=== PATIENT | female | born 1995 | race Caucasian/White ===

== ENCOUNTER 2018-03-06 09:14 | Inpatient (IN) ==
[2018-03-06] MEDS ORDERED: ONDANSETRON HCL/PF 2 MG/ML VIAL IV PRN ×2 (09:22→22:59)
[2018-03-06] MEDS ORDERED: OXYTOCIN/DEXTROSE 5%-WATER 30 UNITS/500 ML BAG IV ONE ×2 (09:22→23:59)
[2018-03-06] MEDS ORDERED: DEXTROSE 5%-LACTATED RINGERS 1,000 ML IV PRN (09:22)
[2018-03-06 09:47] LABS: Hematocrit 27.4 % (37.0-47.0); Hemoglobin 8.4 gm/dL (12.5-16.0); Mean Cell Volume 72.9 fl (78-100); Mean Corpuscular Hemoglobin 22.3 pg (27-31); Mean Corpuscular Hgb Conc 30.7 g/dl (32-36); Mean Platelet Volume 8.8 fl (8-12.5); Neutrophil # 6.3 K/mm3 (1.3-6.0); Platelet Count 248 K/mm3 (150-450); Red Blood Count 3.76 M/mm3 (4.2-5.4); Red Cell Distribution Width 15.9 % (11.5-14.0); White Blood Count 8.2 K/mm3 (4.0-10.5)
[2018-03-06 10:47] LABS: Cocaine Ur Negative (NEGATIVE); Urine Barbiturate Negative (NEGATIVE); Urine Benzodiazepines Negative (NEGATIVE); Urine Opiates Negative (NEGATIVE); Urine PCP Negative (NEGATIVE); Urine THC Negative (NEGATIVE)
--- NOTE | 2018-03-06 19:00 | HP ---
Chief Complaint - Chief Complaint Date of Service: 03/06/18 Time of Service: 18:50 Chief Complaint: LOF, contractions History of Present Illness: 22 yo at 37wk 5d presents to L&D complaining of SROM at around 0700 with frequent painful contractions. This complicated by chlamydia infection (tx'd), poor growth (26.9 - 17.4%), pelviectasis. Rh negative Rubella immune GBS negative Medical History (Last Reviewed 03/06/18 @ 18:56 by Fracisco Guzman DO) Anemia Onset Date: ~2013 d/t Implanon-irregular bleeding Chlamydia Onset Date: ~2011 2011; 08/25/17 Surgical History: Surgical History (Last Reviewed 03/06/18 @ 18:56 by Fracisco Guzman DO) H/O adenoidectomy Onset Date: ~2002 History of tonsillectomy Onset Date: ~2002 Family History: Family History (Last Reviewed 03/06/18 @ 18:56 by Fracisco Guzman DO) Father Alive and well Mother Cancer ovarian-hysterectomy Sister SIDS (sudden infant syndrome) Grandfather Heart disease Cancer maternal-colon Grandfather Diabetes paternal Grandmother Heart disease Cancer maternal-lung Grandmother Cancer paternal-breast Social History: Preferred Language Romanian (Last Updated 03/02/18 @ 12:24 by Fracisco Guzman DO) No Social History Section defined Review Of Systems (GEN) - Review of Systems EENTM: Present: No Symptoms Reported Respiratory: Present: No Symptoms Reported Cardiac: Present: No Symptoms Reported Abdominal: Present: Other - contractions Genitourinary: Present: Other - LOF Musculoskeletal: Present: No Symptoms Reported Neurological: Present: No Symptoms Reported Skin: Present: No Symptoms Reported Endocrine: Present: No Symptoms Reported Allergies/Adverse Reactions: Allergies Allergy/AdvReac Type Severity Reaction Status Date / Time azithromycin Allergy Mild rash Verified 02/16/18 14:06 cefaclor [From Ceclor] Allergy Mild hives Verified 02/16/18 14:06 cephalexin Allergy Mild hives Verified 02/16/18 14:06 Home Medications: HOME MEDICATIONS vitamin,calcium,enmgokql-sqre-plqdo acid tablet 1 tab PO DAILY 11/09/17 [Last Taken Unknown] Calcium Carbonate [Tums] 500 mg PO DAILY 10/27/18 [Last Taken Unknown] Exam - Exam Vital Signs: Vital Signs - Last Taken Temp 36.9 C 03/06/18 09:15 Pulse 92 03/06/18 09:15 Resp 18 03/06/18 09:15 BP 118/69 03/06/18 09:15 Pulse Ox 100 03/06/18 09:15 Constitutional: Present: Alert, Oriented x3, Cooperative ENT Exam: Present: hearing grossly normal Neck: Present: trachea midline. Absent: lymphadenopathy (R), lymphadenopathy (L), thyromegaly Back Exam: Present: no CVA tenderness Breasts: Present: Exam deferred Respiratory: Present: lungs clear, no respiratory distress Cardiovascular/Chest: Present: normal peripheral pulses, regular rate, rhythm, no edema Abdomen: Present: soft, nontender, no rebound tenderness, other - gravid /Rectal: Present: Other - 3-4/75/-2, per nurse upon admission with gross ROM - clear Extremity: Present: no pedal edema, no calf tenderness Skin Exam: Present: normal color, warm/dry, no cyanosis Lymphatic: Present: no adenopathy Neurologic: Present: alert, normal mood/affect, oriented x 3 Appearance: Present: appropriate appearance, appropriate insight Eye contact: Present: cooperative, good eye contact Thoughts: Present: normal thought pattern Diagnostic Studies: Abnormal Lab Results 03/06/18 Range/Units 09:35 RBC 3.76 L (4.2-5.4) M/mm3 Hgb 8.4 L (12.5-16.0) gm/dL Hct 27.4 L (37.0-47.0) % MCV 72.9 L (78-100) fl MCH 22.3 L (27-31) pg MCHC 30.7 L (32-36) g/dl RDW 15.9 H (11.5-14.0) % Neutrophils % 77.0 H (42-75.0) % Lymphocytes % 15.0 L (20-51) % Neutrophils # 6.3 H (1.3-6.0) K/mm3 Lymphocytes # 1.24 L (1.5-3.5) k/mm3 Laboratory Results WBC 8.2 K/mm3 (4.0-10.5) 03/06/18 09:35 RBC 3.76 M/mm3 (4.2-5.4) L 03/06/18 09:35 Hgb 8.4 gm/dL (12.5-16.0) L 03/06/18 09:35 Hct 27.4 % (37.0-47.0) L 03/06/18 09:35 MCV 72.9 fl (78-100) L 03/06/18 09:35 MCH 22.3 pg (27-31) L 03/06/18 09:35 MCHC 30.7 g/dl (32-36) L 03/06/18 09:35 RDW 15.9 % (11.5-14.0) H 03/06/18 09:35 Plt Count 248 K/mm3 (150-450) 03/06/18 09:35 MPV 8.8 fl (8-12.5) 03/06/18 09:35 Immature Gran % (Auto) 0.20 % (0.001-0.429) 03/06/18 09:35 Immature Gran # (Auto) 0.02 K/mm3 (0.000-0.0310) 03/06/18 09:35 Neutrophils % 77.0 % (42-75.0) H 03/06/18 09:35 Lymphocytes % 15.0 % (20-51) L 03/06/18 09:35 Monocytes % 7.3 % (0.0-9) 03/06/18 09:35 Eosinophils % 0.4 % (0.0-3.0) 03/06/18 09:35 Basophils % 0.1 % (0.0-1.0) 03/06/18 09:35 Nucleated RBC % 0.0 k/mm3 (0-1) 03/06/18 09:35 Neutrophils # 6.3 K/mm3 (1.3-6.0) H 03/06/18 09:35 Lymphocytes # 1.24 k/mm3 (1.5-3.5) L 03/06/18 09:35 Monocytes # 0.6 k/mm3 (0.0-1.0) 03/06/18 09:35 Eosinophils # 0.0 k/mm3 (0.0-0.7) 03/06/18 09:35 Absolute Basophils 0.0 k/mm3 (0.0-0.1) 03/06/18 09:35 Urine Opiates Screen Negative (NEGATIVE) 03/06/18 10:08 Barbiturate Screen Negative (NEGATIVE) 03/06/18 10:08 Ur Phencyclidine Scrn Negative (NEGATIVE) 03/06/18 10:08 Urine Amphetamine Negative (NEGATIVE) 03/06/18 10:08 U Benzodiazepines Scrn Negative (NEGATIVE) 03/06/18 10:08 Urine Cocaine Screen Negative (NEGATIVE) 03/06/18 10:08 Urine Marijuana (THC) Negative (NEGATIVE) 03/06/18 10:08 Assessment/Plan - Assessment/Plan (1) SROM (spontaneous rupture of membranes) Assessment: Admit for routine managment of labor. Epidural PRN. Limit vaginal exams. Pitocin augmentation PRN. Observe closely for s/s of infection. Problem: Acute (2) Labor established Problem: Acute
--- NOTE | 2018-03-06 19:02 | PN ---
Progess Note - Interim Date: 03/06/18 Time: 12:30 Narrative: 03/06/18 19:00 Patient rates contractions 7/10 FHT 145 reassuring Contractions q 3-min. Pitocin at 9 mu/min. Cvx 4-5/80/-2, posterior, soft Impression: 37 5/7wk IUP, SROM, labor Plan: Continue present plan.
--- NOTE | 2018-03-06 19:57 | PN ---
Progess Note - Interim Date: 03/06/18 Time: 19:55 Narrative: 03/06/18 19:55 Patient rating her contractions 8 out of 10 Vital signs stable. Pitocin at 6 mu/min. FHT: 140 baseline, reassuring Contractions q 2-3 min Cervix: 6/90/-2 Impression: Intrauterine at 37-5/7 weeks in labor with ruptured membranes now at 13 hours Plan: IUPC placed. Anticipate normal spontaneous vaginal delivery.
[2018-03-06] MEDS: RINGER'S SOLUTION,LACTATED 1,000 ML IV ONE ×2 (20:07→22:51)
[2018-03-06] MEDS ORDERED: NALOXONE HCL 1 MG/1 ML SYRG IV PRN (22:59)
[2018-03-06] MEDS ORDERED: BUPIVACAINE HCL/0.9 % NACL/PF 250 ML EP PRN (22:59)
[2018-03-06] MEDS ORDERED: BUPIVACAINE HCL/PF 30 ML VIAL EP SCH (23:00)
--- NOTE | 2018-03-06 23:12 | ANES ---
Anesthesia Pre Procedure Eval Vitals/Labs: Last Vital Signs Temp 36.9 C 03/06/18 09:15 Pulse 92 03/06/18 09:15 Resp 18 03/06/18 09:15 BP 118/69 03/06/18 09:15 Pulse Ox 100 03/06/18 09:15 HOME MEDICATIONS vitamin,calcium,qwqiwodq-fhmo-zfhoz acid tablet 1 tab PO DAILY 11/09/17 [Last Taken Unknown] Calcium Carbonate [Tums] 500 mg PO DAILY 03/04/18 [Last Taken Unknown] Allergies/Adverse Reactions: Allergies Allergy/AdvReac Type Severity Reaction Status Date / Time azithromycin Allergy Mild rash Verified 02/16/18 14:06 cefaclor [From Ceclor] Allergy Mild hives Verified 02/16/18 14:06 cephalexin Allergy Mild hives Verified 02/16/18 14:06 - Planned Procedure Planned Procedure: ACTIVE LABOR Medication List Reviewed:: Yes Allergies Verified: Yes Medical History (Last Reviewed 03/06/18 @ 23:11 by Vipin Ac CRNA) Anemia Onset Date: ~2013 d/t Implanon-irregular bleeding Chlamydia Onset Date: ~2011 2011; 08/25/17 Surgical History (Last Reviewed 03/06/18 @ 23:11 by Vipin Ac CRNA) H/O adenoidectomy Onset Date: ~2002 History of tonsillectomy Onset Date: ~2002 Family History (Last Reviewed 03/06/18 @ 23:11 by Vipin Ac CRNA) Father Alive and well Mother Cancer ovarian-hysterectomy Sister SIDS (sudden syndrome) Grandfather Heart disease Cancer maternal-colon Grandfather Diabetes paternal Grandmother Heart disease Cancer maternal-lung Grandmother Cancer paternal-breast - Respiratory Smoking Status: Never smoker - Cardiovascular Tolerates Activity: Good Heart Sounds: S1 & S2, Regular - Anesthesia Assessment and Plan ASA Class: PS, II Anesthesia Type Plan: Epidural
--- NOTE | 2018-03-06 23:30 | ANES ---
Anesthesia Procedure Note Procedure Note: ANESTHESIA PROCEDURE NOTE Date of Procedure: 03/06/2018. Time of procedure: 5. Performed by: Vipin Ac CRNA Tool Repair Technician: None. Preprocedure diagnosis: Active labor. Post procedure diagnosis: Same. Procedure: Insertion of labor epidural. Indications: The patient is a 22 -year-old female in active labor requesting labor epidural for pain management. Findings: See below. Details of the procedure: The patient was placed in a sitting position. DuraPrep as well as Betadine swabs X3 was applied to the patient's back. Patient was then draped in a sterile fashion. Lidocaine 1% was infiltrated to the skin and subcutaneous tissues at the level of the L3-4 interspace. The epidural space was identified using a 18-gauge Tuohy needle with [id number] technique. Epidural catheter was inserted to a depth of 10 centimeters at skin. Negative test dose was elicited using 3 mL of 1.5% preservative-free lidocaine plus epinephrine 1 200,000. The epidural catheter was then taped and secured in place. A loading dose of 8 mL of 0.25% preservative-free bupivacaine was administered to the epidural catheter after negative aspiration for blood and CSF. EBL: Minimal. Fluids: N/A. Specimen: N/A. Post procedure condition: The patient tolerated the procedure well. No complications were noted. Thank you for this consultation. Vipin Ac CRNA
--- NOTE | 2018-03-06 23:31 | ANES ---
Post Anesthesia Assessment - Vital Signs Vitals: Last Vital Signs Temp 37.1 C 03/06/18 23:26 Pulse 102 H 03/06/18 23:26 Resp 18 03/06/18 23:26 BP 123/59 03/06/18 23:26 Pulse Ox 98 03/06/18 23:26 Airway Patency: Normal - Mental Status Level Of Consciousness: Awake - N/V Assessment Nausea/Vomiting Presence: None Dehydration:: No
[2018-03-06] MEDS ORDERED: SENNOSIDES 8.6 MG TABLET PO PRN (23:59)
[2018-03-06] MEDS ORDERED: BISACODYL 10 MG SUPP.RECT RC PRN (23:59)
[2018-03-06] MEDS ORDERED: oxyCODONE HCL/ACETAMINOPHEN 1 TAB TABLET PO PRN (23:59)
[2018-03-06] MEDS ORDERED: BENZOCAINE/MENTHOL 81 SPRAY CAN TP PRN (23:59)
[2018-03-06] MEDS ORDERED: GLYCERIN/WITCH HAZEL LEAF 40 APPL BOX TP PRN (23:59)
[2018-03-06] MEDS ORDERED: HYDROCORTISONE 30 APPL TUBE TP PRN (23:59)
--- NOTE | 2018-03-07 00:02 | OR ---
Operative Report - Dictated Report Narrative: Spontaneous vaginal delivery of viable female at 2339 with Apgars 8 and 9, weighing 3035 g in VANDANA position. Cord clamping delayed approximately 1 minute Placenta delivered complete, intact, with three vessel cord Estimated blood loss: less than 50 ml Anesthesia: epidural Lacerations: None History for MU Definition: * The number of deliveries resulting in a live the patient experienced prior to current hospitalization * The previous delivery of live twins or any live multiple gestation is considered one live event. *If primagravida or nulliparous is documented select zero for the number of previous live births. Live Events: 1
[2018-03-07] MEDS: DOCUSATE SODIUM 100 MG CAPSULE PO SCH ×3 (00:45→21:21)
[2018-03-07] MEDS: IBUPROFEN 800 MG TABLET PO PRN ×3 (01:16→15:10)
[2018-03-07] MEDS: oxyCODONE HCL/ACETAMINOPHEN 1 TAB TABLET PO PRN ×6 (02:20→21:21)
--- NOTE | 2018-03-07 08:28 | PN ---
Subjective - Date and Time Seen Date: 03/07/18 Time: 08:28 Objective - Vitals Vitals: Last Vital Signs Temp 36.8 C 03/07/18 07:20 Pulse 73 03/07/18 07:20 Resp 18 03/07/18 07:20 BP 116/59 03/07/18 07:20 Pulse Ox 98 03/07/18 07:20 Patient denies complaints. Lochia wnl Abdomen - soft, nontender Uterus - firm, at umbilicus No calf tenderness Impression: day #1 - s/p spontaneous vaginal delivery. Plan: Continue routine care - Abnormal Lab Findings Abnormal Lab Findings: Abnormal Lab Results 03/06/18 Range/Units 09:35 RBC 3.76 L (4.2-5.4) M/mm3 Hgb 8.4 L (12.5-16.0) gm/dL Hct 27.4 L (37.0-47.0) % MCV 72.9 L (78-100) fl MCH 22.3 L (27-31) pg MCHC 30.7 L (32-36) g/dl RDW 15.9 H (11.5-14.0) % Neutrophils % 77.0 H (42-75.0) % Lymphocytes % 15.0 L (20-51) % Neutrophils # 6.3 H (1.3-6.0) K/mm3 Lymphocytes # 1.24 L (1.5-3.5) k/mm3 Assessment/Plan - Problems/Diagnosis (1) SROM (spontaneous rupture of membranes) Problem: Acute (2) Labor established Problem: Acute
[2018-03-07] MEDS: PRENATAL VITS96/IRON FUM/FOLIC 1 TAB TABLET PO SCH (09:40)
[2018-03-07] MEDS: CALCIUM CARBONATE 500 MG TAB.CHEW PO SCH (09:41)
[2018-03-07] MEDS: FERROUS SULFATE 325 MG TABLET PO SCH ×2 (09:41→21:21)
[2018-03-07] MEDS ORDERED: RHO(D) IMMUNE GLOBULIN 1,500 UNIT SYRINGE IM ONE (12:48)
[2018-03-08] MEDS: IBUPROFEN 800 MG TABLET PO PRN ×2 (06:23→12:28)
[2018-03-08] MEDS: CALCIUM CARBONATE 500 MG TAB.CHEW PO SCH (09:58)
[2018-03-08] MEDS: FERROUS SULFATE 325 MG TABLET PO SCH (09:59)
[2018-03-08] MEDS: DOCUSATE SODIUM 100 MG CAPSULE PO SCH (09:59)
[2018-03-08] MEDS: PRENATAL VITS96/IRON FUM/FOLIC 1 TAB TABLET PO SCH (10:01)
--- NOTE | 2018-03-08 12:27 | PN ---
Progess Note - Interim Date: 03/08/18 Time: 12:26 Narrative: 03/08/18 12:26 Patient denies complaints. Lochia wnl Abdomen - soft, nontender Uterus - firm, at umbilicus - 2 No calf tenderness Impression: day #2 - s/p spontaneous vaginal delivery. Plan: Routine discharge instructions
[2018-03-08 12:42] VITALS: BP 124/73
== END 2018-03-08 13:00 | disposition home or self-care (01) | DRG 806 ==
LOC: OB 09:14
PROVIDERS: ADMIT Obstetrics & Gynecology; ATTEND Obstetrics & Gynecology
CPT/HCPCS: 36415; 59025; 80307; 85025; 85460; 88307; 90686; G0479; J2790